=== PATIENT | female | born 1955 | race Caucasian/White ===

== ENCOUNTER 2017-01-16 20:07 | Emergency (ER) | payer OTHER ==
--- NOTE | 2017-01-16 20:56 | ED CLINICAL REPORT ---
Clinical Report - Physicians/Mid Levels [facility] [address] [place] [address] 01/16/2017 20:08 Patient: IZAIAH GREENBERG Arrived- By private vehicle. Historian- patient. HISTORY OF PRESENT ILLNESS Chief Complaint: Injury to the left index finger. The patient sustained a laceration. Occurred at home. Patient is experiencing mild pain. ( patient sustained a laceration to her left index finger from a knife while attempting to cut a watermelon prior to arrival. Patient is right-hand dominant. Indications are up-to-date. Injuries to the area. Patient states the baby aspirin. Has been having bleeding and oozing from the area.). REVIEW OF SYSTEMS The patient sustained a laceration. No tingling. All systems otherwise negative, except as recorded above. PAST HISTORY The patient's dominant hand is the right. She has not had a prior injury to the same area. Tetanus immunization status is up-to-date. Problems: Hypercholesterolemia. Fibromyalgia. Dementia. Hypertension. Diabetes Mellitus Type 2. Additional Surgeries: Appendectomy. Cholecystectomy. Hysterectomy. Medications: LevETIRAcetam Oral (Tablet 750 mg) 1 tablet, 2x a day. Indomethacin Oral 75 mg x2, daily. Aspirin Oral (Tablet 81 mg) 1 tablet. Topiramate Oral (Tablet 25 mg) 2 tablets, at bedtime. Lantus Subcutaneous 60 units, at bedtime. TraMADol HCl Oral (Tablet 50 mg) 1 tablet, 2x a day. Victoza Subcutaneous 1.8 mg, daily. Cyclobenzaprine HCl Oral (Tablet 10 mg) 2 tablets, at bedtime. Metoprolol Tartrate Oral (Tablet 25 mg) 1 tablet, 2 x daily. Lisinopril Oral (Tablet 20 mg) 1 tablet, daily. HumaLOG Subcutaneous 10 units, 2x a day. Allergies: Inhaled steroid. SOCIAL HISTORY Former smoker. No drug use. PHYSICAL EXAM Appearance: Alert. No acute distress. Head: Head atraumatic. ENT: Nose normal. Pharynx normal. Neck: Normal inspection. Respiratory: No respiratory distress. Breath sounds normal. Skin: Skin warm. Extremities: Tip of left index finger: (lac at distal aspect partial thickness, mild bleeding, no nail involement). Tip of left middle finger: (superficial abrasion, no bleeding). (full rom, no erythema/ drainage.). Neuro, Vascular and Tendons: Vascular status intact. Motor intact. Neuro: Oriented X 3. PROGRESS AND PROCEDURES Laceration Repair: Time: 2016. Location: left index finger. Time-out completed immediately before the procedure. Length: 1 cm. Complexity: simple (local anesthesia used and sutured). Wound depth/shape- linear and involving fascia. Wound is clean. Distal neuro/vascular/tendon status normal. Tendon examined. No sensory deficit or motor deficit distally. No tendon deficit. Anesthesia provided by digital block using 0.25% Marcaine. Prepped with Betadine. Wound explored, cleansed and irrigated. Closure of superficial layer: interrupted 5-0 (3 sutures). Post-procedure: she is stable and there are no complications. Dressing applied. Tetanus immunization up-to-date. Course of Care: Patient in the emergency department for range of motion, laceration of the distal I cannot overlying any part of a joint. No signs of secondary infection. Irrigated copiously. Stable for discharge. Patient is stable. Symptoms better. Patient/family counseled. Disposition: Discharged. Condition: good. CLINICAL IMPRESSION Single superficial laceration to the left index finger. INSTRUCTIONS Protect wound and keep wound area clean. Apply bacitracin twice daily. Sutures/remi should be removed in seven days. Follow-up: Follow up with your doctor in seven for suture removal. (Electronically signed by Joanne Fabian P.A.-C 01/16/2017 21:26)
--- NOTE | 2017-01-16 20:56 | ED ORDER SUMMARY ---
..... Patient: IZAIAH GREENBERG OrderSheet [facility] VisitID: [id number] [address] [place] [address] 61y, F Registration Date/Time: 01/16/2017 ORDER SHEET Weight: 136.0 kg (stated) Allergies: Inhaled steroid GENERAL ORDERS: Wound Irrigation (20:34 01/16/2017 Lazaro Fontenot) (20:53 LAbjessica R.N.) Vitals (20:57 01/16/2017 Lazaro Fontenot) (21:12 Marion R.N.) MEDICATION ORDERS: IV FLUIDS: ORDER SHEET NOTES: [Electronically signed by Joanne Fabian P.A.-C (21:26 01/16/2017)] [Electronically signed by Kelise Hoffmann R.N. (22:39 01/16/2017)] [Electronically locked/signed by Kelsie Hoffmann R.N. (22:39 01/16/2017)]
--- NOTE | 2017-01-16 20:56 | ED ORDER SUMMARY ---
..... Patient: IZAIAH GREENBERG OrderSheet [facility] VisitID: [id number] [address] [place] [address] 61y, F Registration Date/Time: 01/16/2017 ORDER SHEET Weight: 136.0 kg (stated) Allergies: Inhaled steroid GENERAL ORDERS: Wound Irrigation (20:34 01/16/2017 Lazaro Fontenot) (20:53 LAbjessica R.N.) Vitals (20:57 01/16/2017 Lazaro Fontenot) (21:12 Marion R.N.) MEDICATION ORDERS: IV FLUIDS: ORDER SHEET NOTES: [Electronically signed by Joanne Fabian P.A.-C (21:26 01/16/2017)] [Electronically signed by Kelsie Hoffmann R.N. (22:39 01/16/2017)] [Electronically locked/signed by Kelsie Hoffmann R.N. (22:39 01/16/2017)]
--- NOTE | 2017-01-16 20:56 | ED NURSING NOTES ---
Clinical Report - Nurses [facility] [address] [place] [address] 01/16/2017 20:08 Patient: IZAIAH GREENBERG TRIAGE Triage time 2014. Acuity: LEVEL 4. Chief Complaint: INJURY TO LEFT HAND. RAJWINDER COMA SCORE: [place] Coma Scale: 15- eyes open spontaneously (4); best verbal response- oriented x 4 (5); best motor response- obeys commands (6). --20:33 Kelsie Hoffmann R.N. 20:18 01/16/17. BP: 201/72. HR: 80. RR: 24. O2 saturation: 98%. Temp: 98 F. Pain level now 6/10. --20:33 Kelsie Hoffmann R.N. Weight: 136 kg stated. Height/Length: 64 inches Per Patient. BMI: 51.5. --20:19 Kelsie Hoffmann R.N. Medications HumaLOG Subcutaneous 10 units, 2x a day. --20:26 Kelsie Hoffmann R.N. Lisinopril Oral (Tablet 20 mg) 1 tablet, daily. --20:26 Kelsie Hoffmann R.N. Metoprolol Tartrate Oral (Tablet 25 mg) 1 tablet, 2 x daily. --20:26 Kelsie Hoffmann R.N. Cyclobenzaprine HCl Oral (Tablet 10 mg) 2 tablets, at bedtime. --20:27 Kelsie Hoffmann R.N. Victoza Subcutaneous 1.8 mg, daily. --20:28 Kelsie Hoffmann R.N. TraMADol HCl Oral (Tablet 50 mg) 1 tablet, 2x a day. --20:29 Kelsie Hoffmann R.N. Lantus Subcutaneous 60 units, at bedtime. --20:29 Kelsie Hoffmann R.N. Topiramate Oral (Tablet 25 mg) 2 tablets, at bedtime. --20:30 Kelsie Hoffmann R.N. Aspirin Oral (Tablet 81 mg) 1 tablet. --20:30 Kelsie Hoffmann R.N. Indomethacin Oral 75 mg x2, daily. --20:31 Kelsie Hoffmann R.N. LevETIRAcetam Oral (Tablet 750 mg) 1 tablet, 2x a day. --20:32 Kelsie Hoffmann R.N. Allergies Inhaled steroid. --20:22 Kelsie Hoffmann R.N. Medication/allergy information source: the patient's spouse. --20:33 Kelsie Hoffmann R.N. History Arrived by private vehicle. Historian: patient. Accompanied by family. Primary physician (Stefani Carlos). This occurred just prior to arrival. Occurred at home. She sustained a laceration from a knife. ( laceration on left index finger from cutting water melon). Treatment CERTIFIED PERSONAL TRAINER: None. PAST MEDICAL HX: Tetanus status: unknown. SOCIAL HX: Former smoker. No drug use. No infectious disease exposure. ABUSE ASSESSMENT: No report of abuse. SELF HARM ASSESSMENT: A self harm assessment was performed. The patient answered "no" to the question "Do you have thoughts of harming or killing yourself?" and "Are you here because you tried to hurt yourself?". FALL RISK ASSESSMENT: Fall risk assessment completed. No fall risk identified. NUTRITIONAL RISK ASSESSMENT: The nutritional risk assessment revealed no deficiencies. FUNCTIONAL ASSESSMENT: Functional assessment: no impairments noted. LEARNING NEEDS ASSESSMENT: The learning needs assessment revealed no barriers. SKIN INTEGRITY ASSESSMENT: Skin integrity risk assessment completed. No skin integrity risk identified. --20:33 Kelsie Hoffmann R.N. PROBLEMS: Hypercholesterolemia. Fibromyalgia. Dementia. Hypertension. Diabetes Mellitus Type 2. --20:32 Kelsie Hoffmann R.N. ADDITIONAL SURGERIES: Appendectomy. Cholecystectomy. Hysterectomy. --20:33 Kelsie Hoffmann R.N. Interventions ID band on patient. To treatment room. --20:33 Kelsie Hoffmann R.N. PHYSICAL ASSESSMENT Ambulatory to room. GENERAL / NEURO / PSYCH: Oriented X 4. Alert. Appears in no acute distress. Appears in pain. CVS: Capillary refill is greater than 2 seconds. EXTREMITIES: Tip of left index finger. SKIN: Skin is warm and dry. --20:34 Kelsie Hoffmann R.N. NURSING PROGRESS NOTES Two patient identifiers checked. Call light placed in reach. Side rails up x 1. Bed placed in lowest position. Brakes of bed on. Patient ready for evaluation- chart flagged. ED physician notified. --20:34 Kelsie Hoffmann R.N. 2100. WOUND REPAIR: Wound repair performed by PA. The wound is located on the right hand and right index finger. Procedure: wound repaired with sutures. Post-procedure: she was stable, no complications and dressing applied. --21:16 Kelsie Hoffmann R.N. DISPOSITION / DISCHARGE Departure time: 21:14. Condition at departure: improved. Discharge instructions provided and reviewed with the patient. Patient verbalized understanding. Written instructions provided in [place]. The patient was discharged home and accompanied by spouse. She left the Emergency Department ambulatory and via private vehicle. Spouse driving. --21:14 Kelsie Hoffmann R.N. 21:13 01/16/17. BP: 158/62. HR: 74. RR: 20. O2 saturation: 97%. Temp: deferred. Pain level now: 0/10. --21:14 Kelsie Hoffmann R.N. Locked/Released at 01/16/2017 22:39 by Kelsie Hoffmann R.N.
--- NOTE | 2017-01-16 22:39 | ED MAR SUMMARY ---
..... Medication Administration Record [facility] [address], [place] [id number] Patient: IZAIAH GREENBERG Visit ID: [id number] 61y, F Weight: 136.0 kg Height/Length: 64 in BMI: 51.5 ALLERGIES: Inhaled steroid
--- NOTE | 2017-01-16 22:39 | ED DISCHARGE INSTRUCTIONS ---
Patient: IZAIAH GREENBERG General Instructions [facility] VisitID: [id number] [place] [address] 61y, F Registration Date/Time: 01/16/2017 Single superficial laceration to the left index finger. INSTRUCTIONS Protect wound and keep wound area clean. Apply bacitracin twice daily. Sutures/remi should be removed in seven days. Follow-up: Follow up with your doctor in seven for suture removal. ADDITIONAL INFORMATION Laceration, Extremity (Sutures, [place], Or Tape) A laceration is a cut through the skin. This will usually require stitches (sutures) or remi if it is deep. Minor cuts may be treated with surgical tape closures. Home care The following guidelines will help you care for your laceration at home: Keep the wound clean and dry. If a bandage was applied and it becomes wet or dirty, replace it. Otherwise, leave it in place for the first 24 hours, then change it once a day or as directed. If stitches or remi were used, clean the wound daily: After removing the bandage, wash the area with soap and water. Use a wet cotton swab to loosen and remove any blood or crust that forms. After cleaning, keep the wound clean and dry. Talk with your doctor before applying any antibiotic ointment to the wound. Reapply the bandage. You may remove the bandage to shower as usual after the first 24 hours, but do not soak the area in water (no swimming) until the stitches or remi are removed. If surgical tape closures were used, keep the area clean and dry. If it becomes wet, blot it dry with a towel. The doctor may prescribe an antibiotic cream or ointment to prevent infection. Do not stop taking this medication until you have finished the prescribed course or the doctor tells you to stop. The doctor may also prescribe medications for pain. Follow the doctors instructions for taking these medications. If you have chronic liver or kidney disease or ever had a stomach ulcer or GI bleeding, talk with your doctor before using these medicines. Follow-up care Follow up with your health care provider. Most skin wounds heal within ten days. However, an infection may sometimes occur despite proper treatment. Therefore, check the wound daily for the signs of infection listed below. Stitches and remi should be removed within 714 days. If surgical tape closures were used, you may remove them after 10 days, if they have not fallen off by then. Notify your doctor if you notice persistent numbness or weakness in the injured extremity. (Note:A radiologist will review any X-rays that were taken. We will notify you of any new findings that may affect your care.) When to seek medical care Get prompt medical attention if any of these occur: Increasing pain in the wound Redness, swelling, or pus coming from the wound Fever of 100.4F (38C) or higher, or as directed by your health care provider If stitches or remi come apart or fall out before your next appointment If the surgical tape closures fall off within seven days, or the wound edges re-open Bleeding not controlled by direct pressure Laceration: Will There Be A Scar? A laceration is a cut through one or more layers of the skin. The goal of emergency treatment is to clean the wound and close it to prevent infection, control bleeding and speed healing. Cuts heal because the body is able to repair the skin by "sealing" the edges together with collagen, a kind of "skin cement." How deep your cut is, its location on your body, your age and the way your skin heals all determine how visible the final scar will be. Some persons tend to heal with more scar tissue than others. This cut will probably heal similar to other cuts you have had in the past. What You Can Do: There are a few simple things that you can do to limit the amount of scar that forms: 1) PREVENT INFECTION: An infected wound makes a bigger scar. Keep the wound clean and dry. Change the dressing and apply any ointment/cream as directed. 2) MASSAGE THE WOUND:After the stitches have been removed: Use a moisturizing cream or lotion containing Aloe or Vitamin E Oil and gently massage the skin around the wound with your fingertips (wash your hands first!). Do this twice a day for the first two weeks, then once a day for a month. This will increase the flow of oxygen and blood to the wound and prevent excess scar tissue from building up. 3) AVOID SUN EXPOSURE: During the first six months, avoid sun exposure since the scar may aly a much darker color than the skin around it. When in the sun, use SPF #50 (or greater) sun block on the scar, or cover the area with a hat or clothing. What To Expect: -- The cut will be sealed within 2 days and will be strong within 5-10 days. However, it will take at least SIX MONTHS for it to be fully healed. -- During the FIRST THREE MONTHS, you may notice the scar line getting more red or purple in color. The scar may become raised. The skin around the wound may feel thick and lumpy. -- During the FOURTH TO SIXTH MONTHS, this process begins to reverse. The red and purple color will fade, the scar line flattens, and the skin around it feels more normal. -- In most cases, the way the scar line looks after six months is the way it will remain, although there may be some continued improvement up to one year after the injury. Is There Anything Else That Can Be Done? If you do not like the way the scar looks after six months, a plastic surgeon may be able to perform a "scar revision." If you have any questions or problems as your wound heals, contact your doctor or this facility. We will be glad to assist you. You have been given the following additional information: Laceration, Extrem (Suture, Staple, Or Tape) Laceration, How To Minimize Scar (Electronically signed by Joanne Fabian P.A.-C 01/16/2017 21:26)
--- NOTE | 2017-01-16 22:39 | ED MAR SUMMARY ---
..... Medication Administration Record [facility] [address] [place], [place] [id number] Patient: IZAIAH GREENBERG Visit ID: [id number] 61y, F Weight: 136.0 kg Height/Length: 64 in BMI: 51.5 ALLERGIES: Inhaled steroid
--- NOTE | 2017-01-16 22:40 | ED MED RECONCILIATION SUMMARY ---
Patient: IZAIAH GREENBERG Medication Reconciliation Report [facility] VisitID: [id number] [address] [place] [address] 61y, F Registration Date/Time: 01/16/2017 Weight: 136.0 kg Height/Length: 64 in. BMI: 51.5 ALLERGIES: Inhaled steroid The patient's Home Medications are listed below: THE FOLLOWING MEDICATIONS NEED TO BE RECONCILED: Aspirin Oral (81 mg) 1 tablet Cyclobenzaprine HCl Oral (10 mg) 2 tablets, at bedtime HumaLOG Subcutaneous 10 units, 2x a day Indomethacin Oral 75 mg x2, daily Lantus Subcutaneous 60 units, at bedtime LevETIRAcetam Oral (750 mg) 1 tablet, 2x a day Lisinopril Oral (20 mg) 1 tablet, daily Metoprolol Tartrate Oral (25 mg) 1 tablet, 2 x daily Topiramate Oral (25 mg) 2 tablets, at bedtime TraMADol HCl Oral (50 mg) 1 tablet, 2x a day Victoza Subcutaneous 1.8 mg, daily The source(s) of the original Home Medication information: patient's spouse The following Medications were given to the patient in the Emergency Department: None. The following Medications were prescribed to the patient: None.
--- NOTE | 2017-01-16 22:40 | ED MED RECONCILIATION SUMMARY ---
Patient: IZAIAH GREENBERG Medication Reconciliation Report [facility] VisitID: [id number] [address] [place] [address] 61y, F Registration Date/Time: 01/16/2017 Weight: 136.0 kg Height/Length: 64 in. BMI: 51.5 ALLERGIES: Inhaled steroid The patient's Home Medications are listed below: THE FOLLOWING MEDICATIONS NEED TO BE RECONCILED: Aspirin Oral (81 mg) 1 tablet Cyclobenzaprine HCl Oral (10 mg) 2 tablets, at bedtime HumaLOG Subcutaneous 10 units, 2x a day Indomethacin Oral 75 mg x2, daily Lantus Subcutaneous 60 units, at bedtime LevETIRAcetam Oral (750 mg) 1 tablet, 2x a day Lisinopril Oral (20 mg) 1 tablet, daily Metoprolol Tartrate Oral (25 mg) 1 tablet, 2 x daily Topiramate Oral (25 mg) 2 tablets, at bedtime TraMADol HCl Oral (50 mg) 1 tablet, 2x a day Victoza Subcutaneous 1.8 mg, daily The source(s) of the original Home Medication information: patient's spouse The following Medications were given to the patient in the Emergency Department: None. The following Medications were prescribed to the patient: None.
== END 2017-01-16 21:14 | disposition home or self-care (01) ==
LOC: ED SRH 20:07
DX: S61.211A Laceration without foreign body of left index finger without damage to nail, initial encounter (principal); W26.0XXA Contact with knife, initial encounter; Y93.G1 Activity, food preparation and clean up; Y92.000 Kitchen of unspecified non-institutional (private) residence as the place of occurrence of the external cause; I10 Essential (primary) hypertension; Z79.82 Long term (current) use of aspirin; E11.9 Type 2 diabetes mellitus without complications; Z79.4 Long term (current) use of insulin